=== PATIENT | male | born 1975 | race Caucasian/White ===

== ENCOUNTER 2020-07-08 13:04 | Emergency (ER) | payer MEDICAID ==
[~2020-07-08] VITALS: Ht 172.7 cm; Wt 70.5 kg
[~2020-07-08 13:04] MED LIST: ALBU8.5H8 IH; FLUT16SP26 BOTHNARES; GUAI120015 PO; NO HOME MEDS
[2020-07-08 13:08] VITALS: BP 125/70
== END 2020-07-08 13:52 | disposition left against medical advice (07) ==
LOC: ER 13:05
DX: S81.012A Laceration without foreign body, left knee, initial encounter (principal); Z53.21 Procedure and treatment not carried out due to patient leaving prior to being seen by health care provider; X58.XXXA Exposure to other specified factors, initial encounter; Y93.89 Activity, other specified; Y92.89 Other specified places as the place of occurrence of the external cause; Y99.8 Other external cause status

== ENCOUNTER 2020-07-13 14:24 | Emergency (ER) | payer MEDICAID ==
[~2020-07-13] VITALS: Ht 172.7 cm; Wt 67.4 kg
--- NOTE | 2020-07-13 16:32 | NUR ---
MARIE Ortiz at bedside.
[2020-07-13] MEDS ORDERED: TETanus/Pertussis (Acell)/Diphther VAC/PF (Tdap-Adult) 0.5ml syringe IMVAC ONE (16:35)
[2020-07-13] MEDS ORDERED: bacitracin 15gm ointment TP ONE (16:35)
[2020-07-13] MEDS ORDERED: SULF1TAB49 PO (16:40)
[2020-07-13] MEDS ORDERED: CEPH-585 PO (16:40)
[2020-07-13 16:55] VITALS: BP 118/60
== END 2020-07-13 16:57 | disposition home or self-care (01) ==
LOC: ER 14:25
DX: L08.9 Local infection of the skin and subcutaneous tissue, unspecified (principal); S81.012D Laceration without foreign body, left knee, subsequent encounter; F15.90 Other stimulant use, unspecified, uncomplicated; Z79.2 Long term (current) use of antibiotics; Z79.899 Other long term (current) drug therapy; Z90.89 Acquired absence of other organs; W26.8XXD Contact with other sharp object(s), not elsewhere classified, subsequent encounter
CPT/HCPCS: 90471; 90715; 99283

== ENCOUNTER 2021-11-29 20:54 | Emergency (ER) | payer MEDICAID ==
[~2021-11-29] VITALS: Ht 172.7 cm; Wt 70.5 kg
[~2021-11-29 20:54] MED LIST changes: +ALBU8.5H17 IH; -ALBU8.5H8 IH
[2021-11-29 20:59] VITALS: BP 114/73
== END 2021-11-30 00:54 | disposition left against medical advice (07) ==
LOC: ER 20:54
DX: S01.512A Laceration without foreign body of oral cavity, initial encounter (principal); Z53.21 Procedure and treatment not carried out due to patient leaving prior to being seen by health care provider; X58.XXXA Exposure to other specified factors, initial encounter; Y93.89 Activity, other specified; Y92.89 Other specified places as the place of occurrence of the external cause; Y99.8 Other external cause status

== ENCOUNTER 2022-08-31 23:03 | Emergency (ER) | payer MEDICAID ==
[~2022-08-31] VITALS: Ht 172.7 cm; Wt 70.5 kg
[2022-08-31 23:05] VITALS: BP 132/86
== END 2022-09-01 01:26 | disposition left against medical advice (07) ==
LOC: ER 23:04
DX: H92.02 Otalgia, left ear (principal); Z53.21 Procedure and treatment not carried out due to patient leaving prior to being seen by health care provider
CPT/HCPCS: 99281

== ENCOUNTER 2022-09-01 14:44 | Emergency (ER) | payer MEDICAID ==
[~2022-09-01] VITALS: Ht 172.7 cm; Wt 70.5 kg
[2022-09-01 14:52] VITALS: BP 130/70
== END 2022-09-01 16:42 | disposition left against medical advice (07) ==
LOC: ER 14:44
DX: H92.02 Otalgia, left ear (principal); Z53.21 Procedure and treatment not carried out due to patient leaving prior to being seen by health care provider
CPT/HCPCS: 99281

== ENCOUNTER 2024-12-25 09:49 | Emergency (ER) | payer MEDICAID ==
[~2024-12-25] VITALS: Ht 172.7 cm; Wt 69.6 kg
[2024-12-25 09:59] VITALS: O2SAT 99
[2024-12-25] MEDS ORDERED: AMOX875T10 PO (11:57)
--- NOTE | 2024-12-25 11:57 | Physician Documentation ---
History of Present Illness ~ Chief Complaint: Mouth Pain Stated Complaint: LIP SWELLING Time Seen by MD: 10:28 Primary Medical Doctor: None HPI Patient is seen today with complaints of dental pain from multiple missing broken teeth in his upper incisors. Patient states he took an Alleve earlier today which did relieve the pain a little bit. He has no other concern or complaint at this time and denies any fever or chills. Medication Reconciliation Allergies: Coded Allergies: No Known Allergies (Unverified , 12/25/24) Scheduled Fluticasone Propionate (Fluticasone Propionate), 2 SPRAYS BOTHNARES DAILY Guaifenesin (Mucinex), 1 TAB PO Q12H Scheduled PRN Albuterol Sulfate (Proair Hfa), 2 PUFFS IH Q4H PRN for SOB or wheezing Miscellaneous Medications [No Home Meds], (Reported) Past Medical History Past Medical History: No Pertinent History Past Surgical History: orthopedic surgeries, tonsillectomy Patient History: Patient reports no known family medical history. Alcohol Use: None Drug Use: methamphetamine Lives with: Family Lives In: Home Occupation: employed Review of Systems Constitutional: Denies: chills, fever, weakness Eyes: Denies: pain, blurred vision ENT: Denies: ear pain, nose pain, throat pain, mouth pain Respiratory: Denies: cough, shortness of breath Cardiovascular: Denies: chest pain, palpitations Gastrointestinal: Denies: abdominal pain, nausea, vomiting Genitourinary: Denies: burning, dysuria Male Genitalia: Denies: penile discharge, testicular pain Neurological: Denies: headache, dizziness Musculoskeletal: Denies: pain, swelling Integumentary: Denies: rash, lesions Allergic/Immunologic: Denies: hives, itching Hematologic/Lymphatic: Denies: no symptoms reported Psychiatric: Denies: depression, anxiety Physical Exam Vital Signs: Temperature: 97.3, Heart Rate: 87, Respiratory Rate: 16, BP: 150/94, Pulse Oximetry: 99, Weight: 69.600 Oxygen Flow Rate: 0 Physical Exam General: Awake and Alert, no acute distress. HEENT: Patient on exam has some old scarring of his upper lip. He has multiple broken and rotting teeth in his upper incisors with mild swelling. Conjunctiva pink, Sclera clear, Mucus Membranes moist. Neck: Supple without masses and tenderness. Resp: Unlabored. Lungs clear to auscultation bilaterally. Extremities: No cyanosis,clubbing or edema. Skin: Warm and Dry. Progress Results/Orders Results/Orders Vital Signs 12/25/24 09:59 Temp 97.3 Pulse 87 Resp 16 B/P (MAP) 150/94 Pulse Ox 99 O2 Flow Rate 0 Medical Decision Making Findings Patient is seen today with complaints of dental pain from multiple missing broken teeth in his upper incisors. Patient states he took an Alleve earlier today which did relieve the pain a little bit. He has no other concern or complaint at this time and denies any fever or chills. Patient was given prescription for amoxicillin 875 mg one tab twice a day for 10 days sent to patient's pharmacy and patient will make follow up appointment with dentist as soon as possible. Return to ED with any worsening, concerning or changing symptoms patient will continue Tylenol and ibuprofen as needed for symptomatic relief Departure Disposition: 01 HOME / SELF CARE / HOMELESS Impression: Primary Impression: Dental abscess Condition: Stable Discharge Instructions: Dental Abscess, [id number] Additional Instructions: Patient was given prescription for amoxicillin 875 mg one tab twice a day for 10 days sent to patient's pharmacy and patient will make follow up appointment with dentist as soon as possible. Return to ED with any worsening, concerning or changing symptoms patient will continue Tylenol and ibuprofen as needed for symptomatic relief Referrals: NO PRIMARY CARE PROVIDER (PCP) Prescriptions Amoxicillin Trihydrate (Amoxicillin) 875 Mg Tablet 1 TAB PO Q12H for 10 Days, #20 TAB Prov: DIONNE HAUSER 12/25/24 Signature Scribe Signature: No scribe Attestation: No scribe DIONNE HAUSER PAC Dec 25, 2024 11:57
[2024-12-25 12:12] VITALS: BP 144/94; PULSE 76; RESP 16; TEMP 97.3
== END 2024-12-25 12:11 | disposition home or self-care (01) ==
LOC: ER 09:49
DX: K04.7 Periapical abscess without sinus (principal); F15.90 Other stimulant use, unspecified, uncomplicated; Z72.89 Other problems related to lifestyle; Z98.890 Other specified postprocedural states
CPT/HCPCS: 99283